=== PATIENT | female | born 1945 | race Caucasian/White ===

== ENCOUNTER 2020-08-30 06:15 | Day surgery (SDC) | payer MEDICARE, OTHER, SELFPAY ==
[2020-08-24 09:20] VITALS: BMI 25.8
--- NOTE | 2020-08-27 11:02 | HO.ANESPROP2 ---
Documented by User: Yamilka Thompson 08/27/20 11:52 HPI - Anesthesia Eval Consult details Narrative: 74yo F for LEFT foot arthroplasty PMFSH Past Medical History Medical History Arthritis Elevated cholesterol Surgical History Surgical History Hx of shoulder surgery S/P foot surgery, right Status post total right knee replacement History of Problems with Anesthesia: Unobtainable Social History Social History Smoking Status: Never smoker Second Hand Smoke Exposure: No Use of substances other than those prescribed or required for medical reasons: N Have you been hit, kicked, punched, or otherwise hurt by someone within the past year? If so, by whom?: No Advance Directives: No Advance Directives Information Provided: Yes Advance Directives on File: No Recently lost weight without trying: No Narrative Narrative: PCP cleared 08/15/20 EKG = RBBB (no change from previous) per PCP note Meds Allergies Allergy/AdvReac Type Severity Reaction Status Date / Time clindamycin AdvReac Nausea Verified 08/30/20 06:52 Home Medications Medication Instructions Recorded Confirmed Type atorvastatin 20 mg PO DAILY 08/24/20 08/24/20 History Exam Exam Date and Time: August 27, 2020 1102 Height,Weight and Vital Signs: Height 5 ft 6 in Weight 72.575 kg Assessment and Plan Assessment Anesthesia Assessment: Chart Reviewed (08/27/20 ) Documented by User: Carol Gupta 08/30/20 07:35 PMFSH Past Medical History Medical History Arthritis Elevated cholesterol Family History Family history of problems with anesthesia: No Surgical History Surgical History Hx of shoulder surgery S/P foot surgery, right Status post total right knee replacement History of Problems with Anesthesia: No Social History Social History Smoking Status: Never smoker Second Hand Smoke Exposure: No Use of substances other than those prescribed or required for medical reasons: N Have you been hit, kicked, punched, or otherwise hurt by someone within the past year? If so, by whom?: No Advance Directives: No Advance Directives Information Provided: Yes Advance Directives on File: No Recently lost weight without trying: No Meds Allergies Allergy/AdvReac Type Severity Reaction Status Date / Time clindamycin AdvReac Nausea Verified 08/30/20 06:52 Home Medications Medication Instructions Recorded Confirmed Type atorvastatin 20 mg PO DAILY 08/24/20 08/24/20 History Assessment and Plan Assessment Anesthesia Assessment: Anesthesia Plan Discussed and Consent Obtained Final Anesthetic Review NPO: Yes Intake Type: Clears Intake Timing: Greater than 8 hours and Solids Intake Timing: Greater than 8 hours ASA Class: II Final Preanesthetic Review: No Changes in Pt Med Stat, Meds & Allergies Reviewed, Consent Obtained/Reviewed, Med/Surg/Anes Hx Reviewed and Anes Risks/Benef Reviewed Patient Risk: Low Procedure Risk: Low Anesthetic Plan Anesthetic Plan: MAC: Disposition: Standard PACU
[2020-08-30 06:53] VITALS: BP 151/72; PULSE 73; RESP 16; TEMP 35.8; O2SAT 97
--- NOTE | 2020-08-30 07:13 | FL_ITS ---
EXAMINATION: XR FLUOROSCOPY WITH IMAGES CLINICAL INFORMATION: Surgery first MTP COMPARISON: None. TECHNIQUE: Fluoroscopy performed by Dr. Anu Henao Fluoroscopy time: 0.25 minutes Total dose: 73.59 mGy Images: 2 FINDINGS: There is osteotomy first metatarsal head with placement of a implant. The implant is subluxed dorsally by 50% with of the joint surface. The hardware appears intact. There are degenerative changes base first proximal phalanx. IMPRESSION: Fluoroscopy for podiatric procedure.
[2020-08-30] MEDS: ceFAZolin Sodium/Dextrose,Iso 2 GM/50 ML PIGGYBACK IV (07:20)
[2020-08-30] MEDS: Lactated Ringers 1,000 ML 100 ML IVCONT (07:26)
--- NOTE | 2020-08-30 10:02 | HO.POSTANES ---
Post Anesthesia Evaluation Post Anesthesia Evaluation Vital Signs: Vital Signs Temp Pulse Resp BP Pulse Ox 08/30/20 06:53 96.5 F L 73 16 151/72 H 97 08/30/20 09:16 97.0 F 74 12 151/82 98 Anesthesia: Monitored Mental Status: Awake Pain Control: Satisfactory Nausea/Vomiting: None Hydration: Adequate Anesthesia-Related Issues: No Anes. Related Issues
--- NOTE | 2020-08-30 15:13 | HO.POSTANES ---
Post Anesthesia Evaluation Post Anesthesia Evaluation Vital Signs: Vital Signs Temp Pulse Resp BP Pulse Ox 08/30/20 06:53 96.5 F L 73 16 151/72 H 97
--- NOTE | 2020-08-30 15:13 | HO.POSTANES ---
Post Anesthesia Evaluation Post Anesthesia Evaluation Vital Signs: Vital Signs Temp Pulse Resp BP Pulse Ox 08/30/20 06:53 96.5 F L 73 16 151/72 H 97 08/30/20 09:16 97.0 F 74 12 151/82 98% Anesthesia: Monitored Mental Status: Awake Pain Control: Satisfactory Nausea/Vomiting: None Hydration: Adequate Anesthesia-Related Issues: No Anes. Related Issues
--- NOTE | 2020-09-01 12:26 | OP_ITS ---
SURGEON: Anu Henao DPM PREOPERATIVE DIAGNOSIS: Hallux rigidus, left foot. POSTOPERATIVE DIAGNOSIS: Hallux rigidus, left foot. PROCEDURE PERFORMED: Left 1st metatarsophalangeal joint dane-implant with Arthrosurface. ESTIMATED BLOOD LOSS: Less than 5 mL. COMPLICATIONS: None. ANESTHESIA: Monitored anesthetic care with local consisting preoperatively of 18 mL of 2% lidocaine plain and 0.5% Marcaine pain, and postoperatively of 5 mL of 0.5% Marcaine plain and 1 mL of dexamethasone. ASSISTANTS: Cindy Bernabe DPM. SPECIMENS: HEMOSTASIS: Pneumatic ankle tourniquet set at 225 mmHg for 34 minutes. INDICATIONS FOR SURGERY: The patient had painful arthritic changes to the 1st metatarsophalangeal joint of the left foot that had been getting progressively worse over time. On x-ray, the patient showed degenerative changes and joint space narrowing as well as significant spurring of the first metatarsophalangeal joint. Multiples conservative and surgical options were discussed in detail with patient including conservative care as well as surgical options including joint replacement, cheilectomy, and joint fusion. The patient elects to proceed with joint replacement. The above-mentioned surgery was discussed in detail with the patient including risks, benefits, and possible complications. No guarantees were given, and written and oral informed consent was obtained. PROCEDURE IN DETAIL: The patient was brought to the operating room, placed on operating table in the supine position. Following IV sedation, the above-mentioned local anesthetic was injected about the left foot in a regional field block fashion. A prophylactic of 2 g of cefazolin was administered at this time. The left foot was then scrubbed, prepped, and draped in a sterile manner. The left foot was exsanguinated and pneumatic ankle tourniquet was inflated to 225 mmHg. Attention was directed to the first metatarsophalangeal joint where there was approximately 10 cm curvilinear incision was made. The incision was deepened down through subcutaneous tissue with great care being taken to retract all vital, neuro, and vascular structures and all bleeders were cauterized as necessary. A linear capsulotomy was made medial and parallel to the extensor tendon. Upon incision into the direct capsule, multiple loose osteophytes were noted. The osteophytes were resected and passed from the operative site. The soft tissues were reflected from the head of the 1st metatarsal and base of proximal phalanx. A large dorsal spur was noted at the head of the first metatarsal as well as some spurring in the base of proximal phalanx. Spurring was resected using a rongeur and passed from the operative site. At this time, the joint cartilage was inspected at the 1st metatarsal head. There was noted to be significant cartilaginous disease and defect of the 1st metatarsal head. The proximal phalanx however had minimal degeneration to it. It was decided to proceed with a dane-implant. McGlammery elevator was used to free any adhesions plantarly off the sesamoid apparatus about the 1st metatarsal head. A guidewire was then placed within the head of the 1st metatarsal and checked under C-arm fluoroscopy to be in the center part of the metatarsal. Next, over the guide pin, a hole was drilled for the stem. The hole was tapped with 1.5 mm of decompression and the stem of the implant was inserted under standard technique. The reamer was then placed over the guidepin and the first metatarsal head was reamed distally as well as dorsally. The wound was then irrigated with sterile saline. The trial implant was then inserted into the 1st metatarsal head and any overhanging bone was resected and rongeured and rasped. The wound was irrigated with copious amounts of normal sterile saline and a 2.5 x 1.5 implant was then placed into the head of the 1st metatarsal and tapped into place. The wound again was irrigated with normal sterile saline and was checked under C-arm fluoroscopy. There was noted be excellent placement of the implant. The toe was put through range of motion and had excellent range of motion, approximately 45 degrees of dorsiflexion was noted. The capsular structures were then reapproximated with 3-0 Vicryl in a continuous running fashion. A piece of AmnioFix was placed intracapsular and extracapsular. The skin was reapproximated with 4-0 Monocryl in a continuous running fashion and 4-0 nylon in an interrupted suture technique. A postoperative injection of 5 mL of 0.5% Marcaine plain and 1 mL of dexamethasone was administered to the left foot. The left foot was then dressed with Steri-Strips, Betadine soaked gauze, 4x4s, fluffs, Gio, cast padding, and an Chidi bandage. The pneumatic ankle tourniquet was deflated and prompt capillary refill was noted to all 5 digits. The patient tolerated the procedure and anesthesia well. The patient was transferred to the recovery room with vital signs stable and vascular status at preoperative levels. Following a period of postoperative recovery, the patient will be discharged home with written and oral postop instructions. The patient is to take ibuprofen as needed and extra-strength Tylenol for pain management. The patient is to ice and elevate her left foot. The patient can be weightbearing as tolerated to the left foot and has been instructed to do range of motion of the 1st metatarsophalangeal joint daily. The patient will follow up in my office for all postoperative followup care and call the office with any questions or concerns. Anu Henao DPM LP/AGUS / [id number] MTDD
== END 2020-08-30 23:59 | disposition home or self-care (01) ==
PROVIDERS: PCP Internal Medicine; Visit Provider Podiatrist
PROC: (CPT 28899; principal; 2020-08-30 07:30)
DX: M20.22 Hallux rigidus, left foot (principal)
CPT/HCPCS: 28291; 88304; 88311; C1713; C1776; J0690; J1100; J2250; J2405; J3010; Q4186

== ENCOUNTER 2025-10-30 09:45 | Day surgery (SDC) | payer MEDICARE, OTHER, SELFPAY ==
--- OUTSIDE RECORDS SUMMARY | 2025-08-14 03:30 | XMS_ITS ---
Author Organization [facility] Address [address] [facility] [place] [address] Care Team Providers Care Power Driven Brush Maker Name Role Phone Dilip Rincon MD Primary Care Provider Unavail able Anu Henao Unavailable [phone] REASON FOR VISIT r/s for sooner apt Encounters Encounter Location Date Provider Diagnosis [facility] [place] [address] 08/14/2025 Anu Henao Plan Of Treatment No Information Progress Notes * Francy OSULLIVAN YDO B:1945 (80 yo F)Acc No.[id number]:08/14/2025 Progress Notes Patient: Francy SUÁREZ Provider: Tarik Henao DPM :1945 A ge:79 Y S ex:Female Date:08/14/2025 Address:[address], [id number] Pcp:Dilip Rincon MD Subjective: * Chief Complaints: * 1 . R/s for sooner apt. * Medical History: Objective: * Vitals: Assessment: Plan: * Treatment: * Images: * The named appointment provid er may or may not be the originator of this progress note, and it is not deemed complete until electronically signed by the appointment provider. Sign off status: Pending * Provider: Tarik Henao DPM Date: 0 08/14/2025 Generated for Pili bateman/Jez/Alexandria on: 1 12/24/2024 02:16 PM EST
--- NOTE | 2025-10-24 13:52 | HO.ANESPROP2 ---
Documented by User: Maribel Velasquez NP 10/24/25 14:22 HPI - Anesthesia Eval Consult details Narrative: 80 yr old female for C7-T1 Cervical Interlaminar MEET PMFSH Active Problems Active Problems: All Active Problems (Updated 10/23/25 @ 14:38 by Alcon Llanes DO) Cervical radiculitis (Acute) Past Medical History Medical History Diet-controlled diabetes mellitus Osteopenia Diverticulitis Fatty liver Cervical radiculitis Arthritis Elevated cholesterol Family History Family history of problems with anesthesia: No Surgical History Surgical History Hx of cataract extraction Hx of tubal ligation Hx of shoulder surgery S/P foot surgery, right Status post total right knee replacement History of Problems with Anesthesia: No Social History Social History Are you a primary landcare officer to a significant other at home: No Do you presently have visiting nurse or other home services: No Patient Tobacco Use Status: Never used Tobacco Second Hand Smoke Exposure: No Have you been hit, kicked, punched, or otherwise hurt by someone within the past year? If so, by whom?: No Are you DNR?: No Advance Directives: No Advance Directives Information Provided: Yes Meds Allergies Allergy/AdvReac Type Severity Reaction Status Date / Time clindamycin AdvReac Nausea Verified 10/30/25 10:27 Home Medications ?Medication ?Instructions ?Recorded ?Confirmed ?Last Taken ?Type acetaminophen 650 mg 1,300 mg PO Q8H 10/24/25 10/24/25 Unknown History tablet,extended release calcium 500 mg (as 1 tab PO DAILY 10/24/25 10/24/25 Unknown History carbonate)-vitamin D3 10 mcg (400 unit) tablet (Calcium 500 + D) multivitamin 1 tab PO DAILY 10/24/25 10/24/25 Unknown History omega-3 fatty acids-fish oil 684 1 cap PO DAILY 10/24/25 10/24/25 Unknown History mg-1,200 mg capsule,delayed release omeprazole 20 mg capsule,delayed 20 mg PO DAILY 10/24/25 10/24/25 Unknown History release rosuvastatin 5 mg tablet 5 mg PO DAILY 10/24/25 10/24/25 Unknown History Exam Narrative Narrative: EKG 02/2024 Normal sinus rhythm, rate 66 Right bundle branch block Septal infarct age undetermined No prior ECG Assessment and Plan Final Anesthetic Review Family History of Problems with Anesthesia: No History of Problems with Anesthesia: No Documented by User: Vazquez Stubbs MD 10/30/25 11:08 [facility] Past Medical History Medical History Diet-controlled diabetes mellitus Osteopenia Diverticulitis Fatty liver Cervical radiculitis Arthritis Elevated cholesterol Surgical History Surgical History Hx of cataract extraction Hx of tubal ligation Hx of shoulder surgery S/P foot surgery, right Status post total right knee replacement Social History Social History Are you a primary landcare officer to a significant other at home: No Do you presently have visiting nurse or other home services: No Patient Tobacco Use Status: Never used Tobacco Second Hand Smoke Exposure: No Have you been hit, kicked, punched, or otherwise hurt by someone within the past year? If so, by whom?: No Are you DNR?: No Advance Directives: No Advance Directives Information Provided: Yes Meds Allergies Allergy/AdvReac Type Severity Reaction Status Date / Time clindamycin AdvReac Nausea Verified 10/30/25 10:27 Home Medications ?Medication ?Instructions ?Recorded ?Confirmed ?Last Taken ?Type acetaminophen 650 mg 1,300 mg PO Q8H 10/24/25 10/24/25 Unknown History tablet,extended release calcium 500 mg (as 1 tab PO DAILY 10/24/25 10/24/25 Unknown History carbonate)-vitamin D3 10 mcg (400 unit) tablet (Calcium 500 + D) multivitamin 1 tab PO DAILY 10/24/25 10/24/25 Unknown History omega-3 fatty acids-fish oil 684 1 cap PO DAILY 10/24/25 10/24/25 Unknown History mg-1,200 mg capsule,delayed release omeprazole 20 mg capsule,delayed 20 mg PO DAILY 10/24/25 10/24/25 Unknown History release rosuvastatin 5 mg tablet 5 mg PO DAILY 10/24/25 10/24/25 Unknown History Exam Exam Date and Time: 10/30/25 Airway Mallampati Class: II TM Dist: >3cm Neck ROM: Full Heart: rrr Lungs: unlabored Assessment and Plan Assessment Anesthesia Assessment: Anesthesia Plan Discussed and Chart Reviewed Final Anesthetic Review NPO: Yes ASA Class: II Final Preanesthetic Review: No Changes in Pt Med Stat, Meds/Allgs Chart Reviewed, Consent Obtained/Reviewed and Anes Risks/Benef Reviewed Patient Risk: Low Procedure Risk: Low Anesthetic Plan Anesthetic Plan: MAC: Disposition: Standard PACU
[2025-10-24 14:01] VITALS: BMI 25.0
--- OUTSIDE RECORDS SUMMARY | 2025-10-24 14:16 | XMS_ITS | Patient Health Record ---
[facility] Address [address] [facility] [place] [address] Care Team Providers Care Fluid Designer Name Role Phone Dilip Rincon MD Primary Care Provider Unavail able Anu Henao Unavailable [phone] Allergies No Known Allergies Reason For Referral No Information Medications Medication SIG (Take, Route, Frequency, Duration) Notes Start Date End Date Status Vagifem 10 MCG 1 tablet Vaginal Two times a Week; Duration: 30 day(s) Not-Taking Calcium Citrate 600 MG Acti ve Atorvastatin Calcium Not-Taking Physical Therapy . . . 2-3x/week; Duration: 3-4 weeks 09/07/2020 Not-Taking Omeprazole Not-Takin g Probiotic Not-Taking Rosuvastatin Calcium 5 MG 1 tablet Orall y Once a day Active Fish Oil 1000 MG 1 capsule Orally twi ce a day; Duration: 30 days Active Multivitamins as directed Orally Active Osteo Bi-Flex Joint Shield Not-Taking Immunizations Vaccine Route Administration Date Status Comme nts Influenza Unknown 07/31/2024 Administered COVID-19 Pfizer BioNTech Vaccine Unknown 01/23/2021 Adm inistered 01/02/2021 Social History Tobacco Use: Social History Observation Description Date Details (start date - stop date) Never Smoker NA - NA Tobacco use other than smoking: Question Answer Notes Are you an other tobacco user? No Tobacco Control (Standard) Question Answer Notes Tobacco use: Nonsmoker Additional Findings: Tobacco non-user Current no nsmoker AUDIT-C (Standard) Question Answer Notes Did you have a drink containing alcohol in the p ast year? No Points 0 Interpretation Negative Problems Problem Type SNOMED Code ICD Code Onset Dates Problem Status W/U Status Risk Notes Problem Localized, primary osteoarthritis of the ankle and/or foot (399861933) Primary osteoarthritis, left ankle and foot (M19.072) Active confirmed Problem Acquired hammer toe of right foot (2080800647242303) Other hammer toe(s) (acquired), right foot (M20.41) Active confirmed Problem Acquired left hallux rigidus (512744782794913) Hallux rigidus of left foot (M20.22) Active confirmed Problem Diabetes mellitus (38281227) Diabetes mellitus without complication (E11.9) Active confirmed Problem Arthritis of first metatarsophalangeal joint of right foot (35026013639991645) Osteoarthritis of right ankle and foot (M19.071) Active confirmed Vital Signs Blood pressure diastolic 77 mm Hg 07/04/2025 Height 5 ft 6 in in 07/04/2025 Blood pressure systolic 122 mm Hg 07/04/2025 Weight 154 lbs 07/04/2025 BMI 24.85 kg/m2 07/04/2025 Encounters Encounter [facility] [address] 07/04/2025 Anu Henao Pain in right toe(s) M79.674 ; Other hammer toe(s) (acquired), right foot M20.41 ; [place] L84 and Diabetes mellitus without complication E11.[address] [address] 05/30/2025 Anu Henao [address] [address] 07/04/2025 Anu Henao Assessments Encounter Date Diagnosis (ICD Code) Assessment Notes Treatment Notes Treatment Clinical Notes Section Notes 07/04/2025 Pain in right toe(s) (ICD-10 - M79.674) 07/04/2025 Other hammer toe(s) (acquired), right foot (ICD-10 - M20.41) 07/04/2025 [place] (ICD-10 - L84) 07/04/2025 Diabetes mellitus without complication (ICD-10 - E11.9) Plan Of Treatment Pending Test Test Name Order Date X ray : Foot, left 3V 2020 X ray : Foot, left 3V 09/07/2020 X ray : Foot, left 3V 09/17/2020 X ray : Foot, left 3V 10/15/2020 X ray : Foot, left 3V 10/29/2020 X ray : Foot, left 3V 12/10/2020 X ray : Foot, right 3V 03/28/2021 X ray : Foot, right 3V 07/04/2025 [id number] NAIL, 1-5 10/13/2013 [id number] NAIL, 1-5 01/26/2014 [id number], [id number]/INJECT, JOINT/BURSA 0 03/28/2021 Insurance Providers Payer Name Payer Address Payer Phone Subscriber Number Group Number Insured Name Patient Relationship to Insured Coverage Start Date Coverage End Date Medicare [employer] [address] [place] [address] [id number] Francy Sanabria Self - patient is the insured 0 [facility] [address] [place] [address] [id number] Francy Sanabria Self - patient is the insured 4 Medical (General) History Medical History History ICD Code back, hip, knee pain chicken pox Arthritis Diabetic Diverticulosis Joint implants/screws Surgical History Surgery Date(Month/Year) rotator cuff tear repair 1989 cold cone of cervix 1974 Bun right 03/08/14 Right Knee Replacement 2016 Left 1st MPJ Implant 08/30/2020 bunionectomy 2020
--- OUTSIDE RECORDS SUMMARY | 2025-10-24 14:16 | XMS_ITS | Continuity of Care Document ---
Author Organization [place] - [facility], [facility] Clinical Address [address] [place] [address] Care Team Providers Care Batch Tester Name Role Phone KAREN VARELA Primary Care Provider Assessment Encounter Date Assessment Date Assessment LastModified by Organization Details LastModified Time 10/09/2025 10/09/2025 Assessment: Right thumb [facility]MC arthritis Plan: Right thumb [facility] joint injection is performed. F/u scheduled in about 4 months for same Not available 10/09/2025 10:25:53 Plan of Treatment Reminders Order Date Submit Date Provider Last Modified By Organization Details Last Modified Time Details Appointments RECHECK 15 2025 11:00A M Bianca romeo MD Not available Not available Not available Lab None recorde d. Referral None recorde d. Procedures None recorde d. Surgeries None recorde d. Imaging None recorde d. Medication Orders None recorde d. Patient TargetsNo targets recorded. Patient InstructionsNo instructions recorded. Reason for Referral None Reported. Results Created Date Observation Date Name Description Value Unit Range Abnormal Flag Note LastModifiedBy Organization Detail LastModifiedTime 09/12/2009/12/2025 XR, cervi dionne spine , 1 view [email or web address] ?Encry pted=s hAaTro YD8dLq bEUv6g %2BXZw aYqtaq 0bqfl% 2Fg9IQ a4ajBk vP9nXo QUaueC m3YtLR FvZlgJ JJ8mAn HZtai3 4t2508 AC0Klb XWHUqC jKiQtr MwF INTERFACE [facility] [address], [place], [address], 09/12/2025 09:40:15 09/12/2009/12/2025 XR, cervi dionne spine , 1 view [email or web address] ?Encry pted=s hAaTro YD8dLq bEUv6g %2BXZw aYqtaq 0bqfl% 2Fg9IQ a4ajBk vP9nXo QUaueC m3YtLR FvZlgJ JJ8mAn HZtai3 8t1355 AC0Klb XWHUqC jKiQtr MwF INTERFACE [facility] [address], [place], [address], 09/12/2025 09:40:18 09/12/2009/12/2025 XR, shoul shakila, 2 or more view [email or web address] ?Encry pted=s hAaTro YD8dLq bEUv6g %2BXZw aYqtaq 0bqfl% 2Fg9IQ a4ajBk vP9nXo QUaueC m3YtLR FvZlgJ JJ8mAn HZtai3 4w1033 AC0Klb XWHUqC iKiQtr MwF INTERFACE [facility] [address], [place], [address], 09/12/2025 09:44:08 09/12/2009/12/2025 XR, shoul shakila, 2 or more view [email or web address] ?Encry pted=s hAaTro YD8dLq bEUv6g %2BXZw aYqtaq 0bqfl% 2Fg9IQ a4ajBk vP9nXo QUaueC m3YtLR FvZlgJ JJ8mAn HZtai3 4m2886 AC0Klb XWHUqC iKiQtr MwF INTERFACE [facility] [address], [place], [address], 09/12/2025 09:44:10 Result Notes None recorded. Problems Name Problem SNOMED Code Status Onset Date Resolution Date Notes Provider Name and Address Organization Details Recorded Time Pain of right shoulder region Active 2024 Mikhail Reddy PA-C [address], [place], [address], [facility] 5 09:34:27 Osteoarthri tis of joint of right shoulder region 1380420050640 00 Active 2024 Mikhail Reddy PA-C [address], [place], [address], [facility] 5 10:11:53 Problem Notes None recorded. Procedures Surgical History Date Name Laterality Status Provider Name and Address Organization Details Recorded Time 5 [facility] Inj completed Bianca Roe MD [address] [place] [address], [place], [address], [facility] 10/07/2025 08:57:17 5 Sports Shoulder 4&1 completed Mikhail Reddy PA-C [address] [place] [address], [place], [address], [facility] 09/12/2025 10:11:41 5 [facility] Inj completed Bianca Roe MD [address] [facility], [place], [address], [facility] 06/12/2025 16:09:46 5 [facility] Inj completed Bianca Roe MD [address] [facility], [place], [address], [facility] 02/06/2025 10:56:51 4 [facility] Inj completed Bianca Roe MD [address] [facility], [place], [address], [facility] 10/10/2024 10:08:11 4 Wrist Joint Kenalog Injection, L/R completed Bianca Roe MD [address], [place], [address], [facility] 05/25/2024 13:24:43 Imaging Results None recorded. Procedure Notes None recorded. Medical Equipment None Reported. Allergies No known drug allergies Medications Name Sig Start Date Stop Date Status Note LastModified by Organization Details LastModified Time hydrocortis one valerate 0.2 % topical cream APPLY TO AFFECTED AREA TWICE A DAY NEEDED FOR RASH active Not Available Not Available No t Available omeprazole 20 mg capsule,del ayed release TAKE 1 CAPSULE BY MOUTH EVERY DAY active Not Available Not Available No t Available clotrimazol e 1 % topical cream APPLY TO AFFECTED AREA TWICE A DAY FOR 14 DAYS active Not Available Not Available No t Available diazepam 5 mg tablet TAKE 1 ORAL TWO HOURS BEFORE PROCEDURE , MAY REPEAT X1 ONE HOUR BEFORE PROCEDURE active Not Available Not Available No t Available amoxicillin 875 mg-potassiu m clavulanate 125 mg tablet TAKE 1 TABLET BY MOUTH EVERY 12 HOURS FOR 10 DAYS 02/06 completed Not Available Not Available Not Available rosuvastati n 5 mg tablet TAKE 1 TABLET BY MOUTH EVERY DAY active Not Available Not Available No t Available diclofenac 1 % topical gel USE DIRECTED APPLY 3-4 GRAMS TO AFFECTED AREA 3 TIMES A DAY active Not Available Not Available No t Available GaviLyte-G 236 gram-22.74 gram-6.74 gram-5.86 gram oral solution PER GI OFFICE active Not Available Not Available No t Available Readi-Cat 2 2 % (w/v) oral suspension USE DIRECTED BY RADIOLOGY 02/06 completed Not Available Not Available Not Available Vitals Date Recorded Body height Body mass index (BMI) Body weight Provider Name and Address Organization Details Last Updated DateTime 10/09/2025 167.64 cm 24.9 kg/m2 80888.22 g ERIC FULTON [facility] 10/09/2025 10:13:55 Social History Question Answer Notes LastModified by Organizat ion Details LastModified Time Tobacco Smoking Status Never Smoker Mikhail Reddy PA-C [address], [place], [address], [facility] 09/12/2025 09:33:54 What Is Your Relationship Status? [email or web address] Information not available 09/12/2025 Sex: Unknown Functional Status Question Answer Note LastModified by Organizat ion Details LastModified Time How many times per week do you consume alcohol? 3-4 times per week Information not available 09/12/2025 Do you use any illicit or recreational drugs? No Information not available 09/12/2025 What is your level of alcohol consumption? Occasional Information not available 09/12/2025 Mental Status None recorded. Family History Nothing Reported. Medical History Condition Response Acid Reflux (GERD) Y Cholesterol Y Gynecological HistoryNo gynecological history recorded. Obstetrics History GPAL:G 0 P 0 0 0 0 Past Encounters Encounter ID Performer Location Encounter Start Date Encounter Closed Date Diagnosis/Indication Diagnosis SNOMED-CT Code Diagnosis ICD10 Code Diagnosis IMO Codes Diagnosis Note [id number] [facility] [address] [place] [address] 09/12/2025 09:25:40 09/19/2025 09:20:28 Pain of right shoulder region 5799399292 M25.511 [id number] Osteoarthr itis of joint of right shoulder region 6049426576 07184 M19.631 [id number] MD [facility] [address] [place] [address] 10/09/2025 09:42:09 10/17/2025 09:43:44 Pain of right hand 9374109306 13080 M79.641 102608 Osteoarthr osis of the carpometacarpal joint of the thumb 79598411 M18.9 Health Concerns Section Related Observation LastModified by Organization Detai ls LastModified Time None Recorded Concern Status LastModified by Organization Details LastModified Time None Recorded Payers Encounter Date Sequence Insurance Name Policy Number Policy Melendez Covered Member ID Melendez Member ID Guarantor Name 10/09/2025 1 MEDICARE B-[place]: [employer] Francy Mckenna n [id number] Francy Pro 10/09/[address] [place] [address] ([facility]) [id number] Francy Pro [id number] [employer] Notes Date Note Type Note Provider Name a nd Address Organization Details Recorded Time 10/09/2025 text/html ROS as noted in the HPI 79 yo female seen in f/u for R thumb [facility] OA, last inj in May 2025. Still finds that she gets several months of relief from the injections. Hoping for same today. Bianca Roe MD [address] [place] [address] [address], [place], [address], [facility] [place] [facility] 10/09/2025 10:26:09 OBGyn Episode No OBEpisode recorded.
--- OUTSIDE RECORDS SUMMARY | 2025-10-24 14:16 | XMS_ITS | Clinical Summary ---
Author Organization [facility]ly [facility] Address [address] [place] [address] Care Team Providers Care City Manager Name Role Phone Dilip Rincon MD Primary Care Provider [phone] Allergies Active Allergy Reactions Criticality Noted Date Comments Clindamycin 05/20/2019 Medications Medication Sig Dispensed Refills Start Date End Date Status Calcium Carb-Cholecalciferol (CALCIUM + D3) 600-200 MG-UNIT TABS Take 1 tablet by mouth. 0 03/29/2015 Active [place]-3 Fatty Acids (FISH OIL) 1200 MG CAPS Take 3 capsules by mouth. 0 Active omeprazole (PriLOSEC) 20 MG capsule Take 20 mg by mouth daily. 1 03/03/2019 Active Active Problems Problem Noted Date Diagnosed Date Cervical pain (neck) 05/20/2019 Radiculopathy affecting upper extremity 05/20/20 19 Subacromial bursitis of left shoulder joint 05/01 Arthritis of left glenohumeral joint 05/20/2019 Family History Medical History Relation Name Comments Diabetes Father Cancer Sister Relation Name Status Comments Father Sister Social History Tobacco Use Types Packs/Day Years Used Date Smoking Tobacco: Never Assessed Sex and Gender Information Value Date Recorded Sex Assigned at Not on file Gender Identity Not on file Sexual Orientation Not on file Last Filed Vital Signs Vital Sign Reading Time Taken Comments Blood Pressure - - Pulse - - Temperature - - Respiratory Rate - - Oxygen Saturation - - Inhaled Oxygen Concentration - - Weight 74.8 kg (165 lb) 05/20/2019 1:07 PM EDT Height 167.6 cm (5' 6 ) 05/20/2019 1:07 PM EDT Body Mass Index 26.63 05/20/2019 1:07 PM EDT Plan of Treatment Health Maintenance Due Date Last Done Comments COVID-19 Vaccine (#1) 03/04/1946 Depression Screening 1957 Preventative Health Evaluation 1963 Shingrix-Zoster Vaccine (1 of 2) 1995 Fall Risk Assessment 2010 Osteoporosis Screening (DEXA Scan) 2010 RSV Adult > 60+ Yrs or (1 - 1-dose 75+ series) 2020 DTap / Tdap / Td (2 - Td or Tdap) 03/09/2023 03/09/2013 Influenza Vaccine (#1) 2025 8, 08/08/2016, 08/15/2015, Additional history exists Pneumococcal Vaccine Completed 07/22/2016, 01/08/20 11 Hepatitis B Vaccines Aged Out No long er eligible based on patient's age to complete this topic RSV Ped < 20 months Aged Out No longe r eligible based on patient's age to complete this topic Care Teams City Manager Relationship Specialty Start Date End Date Dilip Rincon MD [address] [place] [id number] PCP - General Internal Medicine 04/13/19
--- OUTSIDE RECORDS SUMMARY | 2025-10-24 14:17 | XMS_ITS ---
Author Name [facility] Organization Unknown Care Team Organization Name Specialty Phone Email Start Date End Da te [facility] 10/07/2022 07/18/20 24
--- OUTSIDE RECORDS SUMMARY | 2025-10-24 14:17 | XMS_ITS | Data Portability ---
Author Organization [place] - [facility], [employer] Address [address] [place] [address] Care Team Providers Care Sales Audit Clerk Name Role Phone KAREN VARELA Primary Care Provider [phone] Assessment Encounter Date Assessment Date Assessment LastModified by Organization Details LastModified Time 02/06/2025 02/06/2025 Assessment: Right thumb CMC arthritis Plan: Right thumb CMC joint injection is performed. F/u scheduled in May for same Not available 02/06/2025 10:57:07 06/12/2025 06/12/2025 Assessment: Right thumb CMC arthritis Plan: Right thumb CMC joint injection is performed. F/u scheduled in September for same Not available 06/12/2025 16:09:53 10/09/2025 10/09/2025 Assessment: Right thumb CMC arthritis Plan: Right thumb CMC joint injection is performed. F/u scheduled in about 4 months for same Not available 10/09/2025 10:25:53 Plan of Treatment Reminders Order Date Submit Date Provider Last Modified By Organization Details Last Modified Time Details Appointments RECHEC K 15 2025 11:00A M Bianca romeo MD Not available Not available Not available Lab None record ed. Referral None record ed. Procedures None record ed. Surgeries None record ed. Imaging XR, should er, 2 or more view - room 1 right should er/lat eral cervic al 2024 025 som [facility], [address], [address], [place], [address], 09/19/2025 09:20:28 XR, cervic al spine, 1 view - latera l cervic al 2024 025 [email or web address], [address], [address], [place], [address], 09/19/2025 09:20:28 XR, knee, 3 view - rm 3. 3V r knee pain after fall tkr 2014 [place] 2024 025 [email or web address] [facility], [address], [address], [place], [address], 03/09/2025 13:08:44 Medication Orders None record ed. Patient TargetsNo targets recorded. Patient InstructionsNo instructions recorded. Reason for Referral None Reported. Results Created Date Observation Date Name Description Value Unit Range Abnormal Flag Note LastModifiedBy Organization Detail LastModifiedTime 02/28/2002/27/2025 XR, knee, 3 view [email or web address] ?Encry pted=s hAaTro YD8dLq bEUv6g %2BXZw aYqtaq 0bqfl% 2Fg9IQ a4ajBk vP9nXo QUaueC m3YtLR FvZlgJ JJ8mAn HZtai3 2q8808 AC0KqY nSGVaS nKiQtr MwF INTERFACE [facility] [address] [facility], [place], [address], 02/27/2025 08:38:51 02/28/2002/27/2025 XR, knee, 3 view [email or web address]:/ [email or web address] ?Encry pted=s hAaTro YD8dLq bEUv6g %2BXZw aYqtaq 0bqfl% 2Fg9IQ a4ajBk vP9nXo QUaueC m3YtLR FvZlgJ JJ8mAn HZtai3 6r4684 AC0KqY nSGVaS nKiQtr MwF INTERFACE [facility] [address], [place], [address], 02/27/2025 08:38:52 09/12/2009/12/2025 XR, cervi dionne spine , 1 view [email or web address]:/ [email or web address] ?Encry pted=s hAaTro YD8dLq bEUv6g %2BXZw aYqtaq 0bqfl% 2Fg9IQ a4ajBk vP9nXo QUaueC m3YtLR FvZlgJ JJ8mAn HZtai3 9b3008 AC0Klb XWHUqC jKiQtr MwF INTERFACE [facility] [address], [place], [address], 09/12/2025 09:40:15 09/12/2009/12/2025 XR, cervi dionne spine , 1 view [email or web address]:/ [email or web address] ?Encry pted=s hAaTro YD8dLq bEUv6g %2BXZw aYqtaq 0bqfl% 2Fg9IQ a4ajBk vP9nXo QUaueC m3YtLR FvZlgJ JJ8mAn HZtai3 0z7394 AC0Klb XWHUqC jKiQtr MwF INTERFACE [facility] [address], [place], [address], 09/12/2025 09:40:18 09/12/2009/12/2025 XR, gisele shakila, 2 or more view [email or web address] ?Encry pted=s hAaTro YD8dLq bEUv6g %2BXZw aYqtaq 0bqfl% 2Fg9IQ a4ajBk vP9nXo QUaueC m3YtLR FvZlgJ JJ8mAn HZtai3 0i6227 AC0Klb XWHUqC iKiQtr MwF INTERFACE [facility] [address], [place], [address], 09/12/2025 09:44:08 09/12/2009/12/2025 XR, shoul shakila, 2 or more view http:/ [email or web address] ?Encry pted=s hAaTro YD8dLq bEUv6g %2BXZw aYqtaq 0bqfl% 2Fg9IQ a4ajBk vP9nXo QUaueC m3YtLR FvZlgJ JJ8mAn HZtai3 5i7068 AC0Klb XWHUqC iKiQtr MwF INTERFACE [facility] [address] [facility] [address], [place], [address], 09/12/2025 09:44:10 Result Notes Documentation Provider Name and Address Organization Details Recorded Time Xr, Knee, 3 View : [email or web address] Encrypted=skOgWzmUY2mYakG Uv6g%1JKLsvLpypb9gsum%2Fg 3PXy1hqPknH8fYzCOgcuMe9Sy TZBhLamLQV7yMlMSltk36f392 4JY0MaSoEZEhFtXhXolPvP Not Available [facility] 02/27/2025 08:38: 51 Xr, Knee, 3 View : [email or web address] Encrypted=atOxRnpKT9xYshJ Uv6g%3KMSqcRlrls1iswj%2Fg 2SBw7moKjoH9dWhLCziyHq1Cw VCKzNadMWK8bZzXOocu32q297 3II2QaHzUFAzNqFoLpcGtN Not Available [facility] 02/27/2025 08:38: 53 Xr, Cervical Spine, 1 View : [email or web address] Encrypted=jdBmNnySK6xDlrO Uv6g%6HADzlFlpak8whtr%2Fg 5YGy4uoNoqJ8pVcRRpsiJi5Nj ZOAtZcrXFE2cFhFDsrs66j203 7YX0IgmBCBGqBgCbJpyRrH Not Available [facility] 09/12/2025 09:40: 16 Xr, Cervical Spine, 1 View : [email or web address] Encrypted=zyWjStwLS1qZrsF Uv6g%1NIBbiGdctx4fpeg%2Fg 4ESk1xyYnkC2tGrGEeqmSj5Bh IDRrKvoIXX5oPtVIyoh49k561 8VU5RypWBPZfUeBaTmeQzC Not Available [facility] 09/12/2025 09:40: 19 Xr, Shoulder, 2 Or More View : [email or web address] Encrypted=ldKfJqrZF4eNflZ Uv6g%2LREsuWxojw4tcth%2Fg 8HKa1cvNpuH7fLrDSeipLg1Dn ZYXoUrfPXY1uXpZJion55k871 9WJ9UlhGUCPmVbAsIirKyZ Not Available [facility] 09/12/2025 09:44: 09 Xr, Shoulder, 2 Or More View : [email or web address] Encrypted=gdUtRfzIX2oXndJ Uv6g%2OEPsqDrwxp8ntlu%2Fg 5VUa5aaVgeL9tShXYntjUd9Zd WEZjNifCTA3eWjDTecw70z537 8MX8OzwTBKYkStTeTfiAgV Not Available [facility] 09/12/2025 09:44: 11 Problems Name Problem SNOMED Code Status Onset Date Resolution Date Notes Provider Name and Address Organization Details Recorded Time Pain of right shoulder region Active 2024 [address], [place], [address] , [facility] 09:34:27 Osteoarthri tis of joint of right shoulder region 2262887196043 00 Active 2024 [address], [place], [address], [facility] 5 10:11:53 Problem Notes None recorded. Procedures Surgical History Date Name Laterality Status Provider Name and Address Organization Details Recorded Time 5 [facility] [place] completed Bianca Roe MD [address] [facility], [place], [address], [facility] 10/07/2025 08:57:17 5 Sports Shoulder 4&1 completed Mikhail Reddy PA-C [address] [facility], [place], [address], [facility] 09/12/2025 10:11:41 5 [facility] Inj completed Bianca Roe MD [address] [facility], [place], [address], [facility]] [facility] 06/12/2025 16:09:46 5 [facility] Inj completed Bianca Roe MD [address], [place], [address], [facility] 02/06/2025 10:56:51 4 [facility] Inj completed Bianca Roe MD [address], [place], [address], [facility] 10/10/2024 10:08:11 4 Wrist Joint Kenalog Injection, L/R completed Bianca Roe MD [address], [place], [address], [facility] 05/25/2024 13:24:43 Imaging Results None recorded. Procedure [...] and Address Organization Details Last Updated DateTime 02/06/2025 167.64 cm 24.9 kg/m2 69806.22 g Carole Zamorano [facility] 02/06/2025 09:57:19 Date Recorded Body height Provider Name an d Address Organization Details Last Updated DateTime 02/27/2025 167.64 cm DANIELA CEE [facility] 02/27/2025 08:32:50 Date Recorded Body height Body mass index (BMI) Body weight Provider Name and Address Organization Details Last Updated DateTime 06/12/2025 167.64 cm 24.9 kg/m2 46978.22 g ERIC FULTON [facility] 06/12/2025 15:50:51 Date Recorded Body height Body mass index (BMI) Body weight Provider Name and Address Organization Details Last Updated DateTime 09/12/2025 167.64 cm 24.9 kg/m2 58236.22 g Mikhail Reddy PA-C [address] [place] [address] [address], [place], [address], [facility] 09/12/2025 09:32:29 Date Recorded Body height Body mass index (BMI) Body weight Provider Name and Address Organization Details Last Updated DateTime 10/09/2025 167.64 cm 24.9 kg/m2 21275.22 g ERIC FULTON [facility] 10/09/2025 10:13:55 Social History Question Answer Notes LastModified by Jumblets Details LastModified Time Tobacco Smoking Status Never Smoker Mikhail Reddy [facility]C [address] [facility] [address], [address], [facility] 09/12/2025 09:33:54 What Is Your Relationship Status? [place] [address] Information not available 09/12/2025 Sex: Unknown Functional Status Question Answer Note LastModified by [employer] Details LastModified Time How many times per week do you consume alcohol? 3-4 times per week [email or web address] [id number] Information not available 09/12/2025 Do you use any illicit or recreational drugs? [facility] Information not available 09/12/2025 What is your level of alcohol consumption? Occasional [email or web address] Information not available 09/12/2025 Mental Status None recorded. Family History Nothing Reported. Medical History Condition Response Acid Reflux (GERD) Y Cholesterol Y Gynecological HistoryNo gynecological history recorded. Obstetrics History GPAL:G 0 P 0 0 0 0 Past Encounters Encounter ID Performer Location Encounter Start Date Encounter Closed Date Diagnosis/Indication Diagnosis SNOMED-CT Code Diagnosis ICD10 Code Diagnosis IMO Codes Diagnosis Note [id number] Bianca tapia MD [address] [facility] [address] 05/25/2024 12:41:10 06/17/2024 16:46:33 Osteoarthrosis of the carpometacarpal joint of the thumb 40653570 M18.9 [id number] Bianca tapia MD [place] [address] [address] 10/10/2024 09:28:34 10/26/2024 13:05:21 Pain of right hand 7309477215 86900 M79.641 710352 Osteoarthr osis of the carpometacarpal joint of the thumb 56712985 M18.9 [id number] MD [facility]AN [facility] [address] [place] [address] 02/06/2025 09:32:44 02/21/2025 16:02:07 Pain of right hand 1704812820 58327 M79.641 370334 Osteoarthr osis of the carpometacarpal joint of the thumb 13209979 M18.9 [id number] [facility] [address] [place] [address] 02/27/2025 08:28:51 03/09/2025 13:08:44 Pain of right knee joint 5423170207 54520 M25.561 [id number] MD ADAN Mejía [facility] [address] [place] [address] 06/12/2025 15:27:14 06/21/2025 12:49:27 Pain of right hand 9929754992 73180 M79.641 946778 Osteoarthr osis of the carpometacarpal joint of the thumb 31332001 M18.9 [id number] KIMBERLY [address] [facility] [address] [place] [address] 09/12/2025 09:25:40 09/19/2025 09:20:28 Pain of right shoulder region 3586437766 M25.511 55328443 Osteoarthr itis of joint of right shoulder region 2365086019 40431 M19.930 [id number] MD [facility]AN [facility] [address] [place] [address] 10/09/2025 09:42:09 10/17/2025 09:43:44 Pain of right hand 6139079033 08517 M79.641 684850 Osteoarthr osis of the carpometacarpal joint of the thumb 16249696 M18.9 Health Concerns Section Related Observation LastModified by Organization Detai ls LastModified Time None Recorded Concern Status LastModified by Organization Details LastModified Time None Recorded Advance Directives Directive None Recorded Payers Insurance Date Sequence Insurance Name Policy Number Policy Melendez Covered Member ID Melendez Member ID Guarantor Name 10/09/2025 1 [place] [employer] Francy Mckenna n [id number] Francy Pro 10/17/2025 2 [facility] [id number] Francy Pro [id number] [employer]ancy [employer] Notes Date Note Type Note Provider Name and Address Organization Details Recorded Time 02/06/2025 text/html ROS as noted in the HPI 79 yo female seen in f/u for R thumb CMC OA, last inj in April 2024. Still finds that she gets several months of relief from the injections. Hoping for same today. Bianca Roe MD [address] [place] [address] [address], [place], [address], [facility] 02/06/2025 10:57:25 02/27/2025 text/html I am seeing the patient today under the supervision of Dr. 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 Delgado at [facility]. Excepted here by Dr. Leach, patient was seen by Mr. Keen roughly 2 years ago with what sounds like IT band irritability. she recently sustained a fall in the interim aspect of her right knee. She is intermittently since then. Does admit to some irritability that radiates up to the lateral aspect of her right hip. This does bother her when she lies down at night. She is taking Advil and Tylenol as well as using ice after walking. She is able to walk 2 miles at this point without difficulty.PMH/PSH/M EDS/ALL/FMH/SOC HX/ROS are reviewed in detail per my medical intake sheet. General Exam: Vital signs are as noted belowMental status: Alert and lucid. Normal insight, affect and grooming.CONSTRUCTION MANAGEMENT INSTRUCTOR: Gross motor coordination is intact. No spasticity or clonus noted.Extremities:Ca lves are soft non tender, skin intact.Orthopedic Examination:Patient has a negative straight leg raise bilaterally.Right Hip: tenderness laterally. Full passive pain-free range of motion. No pain with active hip flexion.Left Hip: [ ] Hip exam shows no tenderness to palpation. There is full range of motion throughout all planes without irritability. There is full muscle strength. There is negative straight leg raise. Negative for signs of impingement.Right Knee: tenderness at the lateral border of the patella. No intra-articular effusion, erythema or warmth. No tenderness along the medial hamstrings. Range of motion 0-120 . No laxity.Full strength and sensation distally.X-rays: Radiographs 3 views of the right knee were obtained and reviewed today now office reveal decent bone interfaces and alignment. No fractures noted. Assessment:Right knee peripatellar and hamstring irritability status post fall. Right hip trochanteric bursitisPLAN: in regards to her right knee as well as hip and recommended Voltaren gel. She is already taking Advil occasionally which is working fairly well for. Continue with activity as tolerated. Given her some home exercises for stretching of the IT band as well as hamstrings. Should symptoms persist or worsen we will recommend a core formal course of physical therapy.I have discussed with her that anterior knee pain status post falls after near presence can persist [facility] speech recognition stereo map plotter operator software was used to create portions of this document. An attempt at proofreading has been made to minimize errors. Please call for corrections. Wily Garcia PA-C [address], [place], [address], [facility] 02/27/2025 08:55:35 06/12/2025 text/html ROS as noted in the HPI 79 yo female seen in f/u for R thumb CMC OA, last inj in May 2025. Still finds that she gets several months of relief from the injections. Hoping for same today. Bianca Roe MD [address], [place], [address], [facility] 06/12/2025 16:10:19 09/12/2025 text/html I am seeing the patient today under the supervision of Dr. Gonzalez who was available but who did not see the patient.CLINICAL HISTORY: Patient is evaluated today 80-year-old female with longstanding history of shoulder pain has been ongoing for 25 years. She had prior shoulder surgery in [place] many years ago when she was ran into by snowboarder skiing on the slopes. Since then she has had intermittent pain she has had difficulty with overhead use she has tried some topical Voltaren and Advil without benefit. She denies any recent injury, frustrated concerned by that she now presents the office for orthopedic evaluation.PAST MEDICAL/SURGICAL HISTORYCurrent medications per intake sheet.PHYSICAL FINDINGSThe patient is well appearing, in no apparent distress, alert and oriented to person, place and time. Gait is symmetric. No significant swelling, warmth or erythema about either shoulder.Examination of the right 4 views of the right shoulder findings demonstrate shoulder demonstrates forward elevation 165 , external rotates 45 , internal rotates back pocket with mild discomfort, mild crepitance with joint manipulation, AC joint tenderness, rotator cuff strength 4/5 with horizontal elevation, 4/5 external rotation, 4/5 resisted belly press test, bicipital groove is mildly irritable, no apprehension in positions of instability, normal scapular mechanics.Cervical Exam demonstrates limited ROM without radicular symptoms.Peripheral, vascular, lymphatic examination, skin, neurologic coordination, reflexes, sensation are within normal limits.X-ray findings: 4 views ordered and independently reviewed previously at [facility] right shoulder findings demonstrate type II acromion, Gundrum joint arthritis with subcoracoid loose body inferior humeral head osteophytes. 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 Referral to home-based physical therapy reevaluation in office as symptoms dictate. If patient remains symptomatic would have low threshold to consider recommendation for reverse total shoulder.[facility] speech recognition stereo map plotter operator software was used to create portions of this document. An attempt at proofreading has been made to minimize errors. Please call for corrections Mikhail Reddy PA-C [address] [place], [place] [address] [address], [place], [address], [facility] 09/12/2025 10:12:14 10/09/2025 text/html ROS as noted in the HPI 79 yo female seen in f/u for R thumb CMC OA, last inj in May 2025. Still finds that she gets several months of relief from the injections. Hoping for same today. Bianca Roe MD [address] [facility] [address], [place], [address], [facility] 10/09/2025 10:26:09 OBGyn Episode No OBEpisode recorded.
--- OUTSIDE RECORDS SUMMARY | 2025-10-24 14:17 | XMS_ITS | Continuity of Care Document ---
Author Organization [place] - [facility], [facility] Clinical Address [address] [place] [address] Care Team Providers Care Trampoline Team Coach Name Role Phone KAREN VARELA Primary Care Provider [phone] Assessment No assessment recorded. Plan of Treatment Reminders Order Date Submit [...] should er/lat eral cervic al 2024 025 [facility], [address], [place], [address], 09/19/2025 09:20:28 XR, cervic al spine, 1 view - latera l cervic al 2024 025 [facility] [employer], [address], [place], [address], 09/19/2025 09:20:28 Medication Orders None record ed. Patient TargetsNo targets recorded. Patient InstructionsNo instructions recorded. Reason for Referral None Reported. Results Created Date Observation Date Name Description Value Unit Range Abnormal Flag Note LastModifiedBy Organization Detail LastModifiedTime 09/12/2009/12/2025 XR, cervi dionne spine , 1 view http:/ [email or web address] ?Encry pted=s hAaTro YD8dLq bEUv6g %2BXZw aYqtaq 0bqfl% 2Fg9IQ a4ajBk vP9nXo QUaueC m3YtLR FvZlgJ JJ8mAn HZtai3 9v4942 AC0Klb XWHUqC jKiQtr MwF INTERFACE [facility] [address], [place], [address], 09/12/2025 09:40:15 09/12/2009/12/2025 XR, cervi dionne spine , 1 view [email or web address]:/ [email or web address] ?Encry pted=s hAaTro YD8dLq bEUv6g %2BXZw aYqtaq 0bqfl% 2Fg9IQ a4ajBk vP9nXo QUaueC m3YtLR FvZlgJ JJ8mAn HZtai3 5l9477 AC0Klb XWHUqC jKiQtr MwF INTERFACE [facility] [address], [place], [address], 09/12/2025 09:40:18 09/12/2009/12/2025 XR, shoul shakila, 2 or more view [email or web address]:/ [email or web address] ?Encry pted=s hAaTro YD8dLq bEUv6g %2BXZw aYqtaq 0bqfl% 2Fg9IQ a4ajBk vP9nXo QUaueC m3YtLR FvZlgJ JJ8mAn HZtai3 7b2787 AC0Klb XWHUqC iKiQtr MwF INTERFACE [facility] [address], [place], [address], 09/12/2025 09:44:08 09/12/2009/12/2025 XR, shoul shakila, 2 or more view http:/ [email or web address] ?Encry pted=s hAaTro YD8dLq bEUv6g %2BXZw aYqtaq 0bqfl% 2Fg9IQ a4ajBk vP9nXo QUaueC m3YtLR FvZlgJ JJ8mAn HZtai3 8l9533 AC0Klb XWHUqC iKiQtr MwF INTERFACE [facility] [address], [place], [address], 09/12/2025 09:44:10 Result Notes Documentation Provider Name and Address Organization Details Recorded Time Xr, Cervical Spine, 1 View : [email or web address]? Encrypted=ofGaWmuKA6gDsjJ Uv6g%9ISSszHcbqv4rnxt%2Fg 7MPe7tjZopB0nCbCNlqsFq0Hx VUOxEpfBEU5sLqGCuvo58t491 6HM6VqxBXJMtZpLmSyeOfT Not Available [facility] 09/12/2025 09:40: 16 Xr, Cervical Spine, 1 View : [email or web address]? Encrypted=ziVxJuxLZ9nQhlM Uv6g%3SEXouMyvxw9btnu%2Fg 0LUa7auKrsV2aGlUQjtcTv6Dd JXSfHnyKGV7gJeYYwnf68z407 6DR5QrxXUZXgToNjVhqWqQ Not Available [facility] 09/12/2025 09:40: 19 Xr, Shoulder, 2 Or More View : [email or web address]? Encrypted=hdQpOijXU9nErsJ Uv6g%4PYXbzNhsth3czjs%2Fg 3NYo4ptNazZ6sJmYFlpgKg7Yf GPLvKgdINE9hMzCDidm75p698 3FB6OaeHWPYoRlKjIylIfZ Not Available [facility] 09/12/2025 09:44: 09 Xr, Shoulder, 2 Or More View : [email or web address] Encrypted=paAlZrpGQ9aMwvB Uv6g%1KMDvaHshfx3lslr%2Fg 2SJv7flSupO6kJuWJqduJf1Wt UVDsLypXED5wXbNQryy81j216 0TI4ZblBCIGmDwOgHztMhB Not Available [facility] 09/12/2025 09:44: 11 Problems Name Problem SNOMED Code Status Onset Date Resolution Date Notes Provider Name and Address Organization Details Recorded Time Pain of right shoulder region Active 2024 Mikhail Reddy PA-C [address], [place], [address], [facility] 09:34:27 Osteoarthri tis of joint of right shoulder region 2479473776934 00 Active 2024 Mikhail Reddy PA-C [address], [place], [address], [facility] 10:11:53 Problem Notes None recorded. Procedures Surgical History Date Name Laterality Status Provider Name and Address Organization Details Recorded Time 5 [facility] Inj completed Bianca Roe MD [address], [place], [address], [facility] 10/07/2025 08:57:17 5 Sports Shoulder 4&1 completed Mikhail Reddy PA-C [address], [place], [address], [facility] 09/12/2025 10:11:41 5 [facility] Inj completed Bianca Roe MD [address], [place], [address], [facility] 06/12/2025 16:09:46 5 [facility] Inj completed Bianca Roe MD [address], [place], [address], [facility] 02/06/2025 10:56:51 4 [facility] Inj completed Bianca Roe MD [address], [place], [address], [facility] 10/10/2024 10:08:11 4 Wrist Joint Kenalog Injection, L/R completed Bianca Roe MD [address], [place], [address], [facility] 05/25/2024 13:24:43 Imaging Results [...] Updated DateTime 09/12/2025 167.64 cm 24.9 kg/m2 00181.22 g Mikhail Reddy PA-C [address], [place], [address], [facility] 09/12/2025 09:32:29 Social History Question Answer Notes LastModified by Organizat ion Details LastModified Time Tobacco Smoking Status Never Smoker Mikhail Reddy PA-C [address], [place], [address], [facility] 09/12/2025 09:33:54 What Is Your Relationship Status? [email or web address] [id number] Information not available 09/12/2025 Sex: Unknown Functional [...] ICD10 Code Diagnosis IMO Codes Diagnosis Note [id number] [facility] [address] [place] [address] 09/12/2025 09:25:40 09/19/2025 09:20:28 Pain of right shoulder region 0950606157 M25.511 [id number] Osteoarthr itis of joint of right shoulder region [id number] 65690 M19.471 [id number] Health Concerns Section Related Observation LastModified by Organization Detai ls LastModified Time None Recorded Concern Status LastModified by Organization Details LastModified Time None Recorded Payers Encounter Date Sequence Insurance Name Policy Number Policy Melendez Covered Member ID Melendez Member ID Guarantor Name 09/12/2025 1 [place]ICARE [place]: [employer] Francy Mckenna n [id number] Francy rPo 09/12/2025 2 [facility] [id number] Francy Drake Morteza [id number] Francy Pro Notes Date Note Type Note Provider Name and Address Organization Details Recorded Time 09/12/2025 text/html I am seeing the patient today under the supervision of Dr. Gonzalez who was available but who did not see the patient.CLINICAL HISTORY: Patient is evaluated today 80-year-old female with longstanding history of shoulder pain has been ongoing for 25 years. She had prior shoulder surgery in [place] many years ago when she was ran [...] views ordered and independently reviewed previously at [facility] right shoulder findings demonstrate type II acromion, [...] threshold to consider recommendation for reverse total shoulder.[employer] [facility] speech recognition nurse researcher software was used to create portions of this document. An attempt at proofreading has been made to minimize errors. Please call for corrections Mikhail Reddy PA-C [address] [facility] [address], [place], [address], [facility] 09/12/2025 10:12:14 OBGyn Episode No OBEpisode recorded.
--- NOTE | ~2025-10-30 | FL_ITS ---
EXAMINATION: FL GUIDANCE ONLY HISTORY: Procedural guidance COMPARISON: None available. TECHNIQUE: Fluoroscopy time: 8 seconds. Cumulative Dose: 0.9191 mGy. DAP: 0.3566 Gycm2 Images: 1. FINDINGS: Single fluoroscopic spot film of the cervical spine demonstrate a needle in the midline and intrathecal contrast material. FL/FL guidance in OR IMPRESSION: Fluoroscopy during procedure. Please see procedure report for additional information. Electronically signed by: Alex Jack MD 10/31/2025 07:17 AM ANG
[2025-10-30 10:25] VITALS: BMI 25.2
--- NOTE | 2025-10-30 10:30 | P.HPSUR_ITS ---
Pre-Procedural Eval Section A - 24 Hr Update-Section A only Date of Service: 10/30/25 The patient is an INPATIENT: No Section B - Complete if H&P > 30 days Chief Complaint: Radiculopathy, cervical region Details of Present Illness: Chronic neck pain and cervical radiculitis Relevant Family History (Specify if Yes): No Relevant Social History: None Present Medications: see Short Stay Collaborative assessment Medical History: No relevant PMH History of Previous Operations: No relevant previous surgery Allergies: Allergies Allergy/AdvReac Type Severity Reaction Status Date / Time clindamycin AdvReac Nausea Verified 10/30/25 10:27 Review of Systems Sugical H&P ROS: Negative: Constitution, Cardiovascular, Respiratory, Neurological, Psychiatric, Hem-Onc, Allergic/Immunologic, Gastrointestinal, Genitourinary, Musculoskeletal, Integumentary, Endocrine and Eyes/Ears/Nose/Throat Exam Surgical H&P Exam: Normal: HEENT, Normal: Heart, Normal: Lungs, Normal: Extr emities, Normal: Abdomen, Normal: Skin and Normal: Neurological Plan Diagnosis/Plan: Unchanged I have reviewed the history and physical and performed a pertinent physical examination on my patient. No changes have occurred unless specified. Time Spent With Patient Time: Total time managing care of this patient today ____ minutes.
--- NOTE | 2025-10-30 10:31 | P.OP_ITS ---
Operative Note Operative Note Date of Service: 10/30/25 Narrative: Procedure performed: C7-T1 MEET Preop diagnosis: Cervical radiculitis Postop diagnosis: The same Anesthesia: Mac After informed consent was obtained patient was brought into the procedure room and placed in the prone position procedure table. Skin over cervicothoracic junction was prepped and draped in the usual sterile manner. C7-T1 interlaminar space was visualized utilizing fluoroscopy. After skin was anesthetized with lidocaine, 3.5 in 20 gauge Tuohy needle was introduced percutaneously and advanced superior edge of the T1 lamina. Needle was then slowly advanced into the epidural space utilizing loss of resistance technique. Once in place, needle placement was verified utilizing 3 cc of Omnipaque contrast solution. Good epidural spread was visualized. After negative aspiration for blood or cer ebrospinal fluid, total volume of 5 cc containing 40 mg of triamcinolone and normal saline solution was injected. Radiation exposure was documented.
[2025-10-30] MEDS: Lactated Ringers 1,000 ML 100 ML IVCONT (10:33)
[2025-10-30 10:47] VITALS: BP 168/75; PULSE 61; RESP 18; TEMP 36.8; O2SAT 99
[2025-10-30 12:02] VITALS: BP 155/66; PULSE 57; RESP 12; TEMP 36.6; O2SAT 98
[2025-10-30 12:16] VITALS: BP 165/88; PULSE 66; RESP 16; TEMP 36.6; O2SAT 98
== END 2025-10-30 12:32 | disposition home or self-care (01) ==
PROVIDERS: PCP Internal Medicine; Visit Provider Physical Medicine & Rehabilitation
PROC: (CPT 62321; principal; 2025-10-30 11:00)
DX: M54.12 Radiculopathy, cervical region (principal); M48.02 Spinal stenosis, cervical region; M53.0 Cervicocranial syndrome; M54.2 Cervicalgia; G44.86 Cervicogenic headache; M19.90 Unspecified osteoarthritis, unspecified site; E11.9 Type 2 diabetes mellitus without complications; E78.00 Pure hypercholesterolemia, unspecified; K21.9 Gastro-esophageal reflux disease without esophagitis; Z96.651 Presence of right artificial knee joint; Z79.1 Long term (current) use of non-steroidal anti-inflammatories (NSAID); Z79.899 Other long term (current) drug therapy; Z88.1 Allergy status to other antibiotic agents; Z98.890 Other specified postprocedural states
CPT/HCPCS: 62321; J2250; J3010

== ENCOUNTER → 2025-10-30 09:45 | Outpatient (BNV) | payer MEDICARE, OTHER, SELFPAY | PROVIDERS: PCP Internal Medicine; Visit Provider Physical Medicine & Rehabilitation | DX: M54.12 Radiculopathy, cervical region (principal) | CPT/HCPCS: 62321 ==